=== PATIENT | female | born 1965 | race Two or more races ===

== ENCOUNTER 2016-10-28 10:16 | Emergency (ER) | payer MEDICAID ==
[~2016-10-28] VITALS: Ht 162.6 cm; Wt 78.0 kg
[2016-10-28 11:04] VITALS: BP 141/97
[2016-10-28] MEDS ORDERED: KETOROLAC TROMETH 60MG/2ML VIAL IM ONE (12:15)
== END 2016-10-28 12:26 | disposition home or self-care (01) ==
LOC: ER 10:16
DX: S82.001A Unspecified fracture of right patella, initial encounter for closed fracture (principal); F17.210 Nicotine dependence, cigarettes, uncomplicated; X58.XXXA Exposure to other specified factors, initial encounter; Y93.89 Activity, other specified; Y99.8 Other external cause status; Y92.89 Other specified places as the place of occurrence of the external cause
CPT/HCPCS: 29505; 73700; 96372; 99284; J1885

== ENCOUNTER 2017-10-08 08:07 | Emergency (ER) | payer MEDICAID ==
[~2017-10-08] VITALS: Ht 175.3 cm; Wt 68.0 kg
[2017-10-08] MEDS ORDERED: SODIUM CHLORIDE 0.9% 1,000 ML IV ONE ×2 (08:17)
[2017-10-08] MEDS ORDERED: MORPHINE SULFATE 4 MG/ML SYR/VIAL IV ONE (08:30)
[2017-10-08] MEDS ORDERED: ONDANSETRON HCL 4 MG/2 ML VIAL IV ONE (08:30)
[2017-10-08] MEDS ORDERED: cefTRIAXone 1GM/10ml IVPUSH 10 ML IV ONE (09:45)
[2017-10-08 09:46] LABS: Basophils # (auto) 0 uL; Basophils % (auto) 0.3 % (0.0-2.0); Eosinophils # (auto) 0 uL; Hematocrit 41.7 % (36.0-46.0); Hemoglobin 14.6 g/dL (12.2-16.2); Lymphocytes # (auto) 0.8 uL; Lymphocytes % (auto) 10.4 % (10.0-50.0); Mean Corpuscular Hemoglobin 32.1 pg (28.0-32.0); Mean Corpuscular Volume 91.7 fL (80.0-100.0); Monocytes # (auto) 0.8 uL; Monocytes % (auto) 10.6 % (0.0-12.0); Neutrophils # (auto) 6.1 uL; Neutrophils % (auto) 78.7 % (37.0-80.0); Platelet Count (auto) 241 10^3/uL (140-450); Red Blood Cells 4.54 10^6/uL (4.0-5.20); Red Cell Distribution Width 12.6 % (11.8-14.3); White Blood Cell 7.7 10^3/uL (4.4-10.8)
[2017-10-08 10:01] LABS: INR 0.97 (0.9-1.15); Partial Thromboplastin Time 30.8 sec (22.64-33.71); Prothrombin Time 10.6 sec (9.37-12.3)
[2017-10-08 10:04] LABS: Albumin 3.7 g/dL (3.4-5.0); Anion Gap 10 (5-15); Calcium 9.3 mg/dL (8.5-10.1); Carbon Dioxide 24 mmol/L (21-32); Chloride 101 mmol/L (98-107); Lipase 140 U/L (73-393); Potassium 3.4 mmol/L (3.5-5.1); Sodium 135 mmol/L (136-145)
[2017-10-08 10:06] LABS: Alanine Aminotransferase 52 U/L (13-56); Amylase 46 U/L (25-115); Blood Urea Nitrogen 8 mg/dL (7-18); GFR African American 96 mL/min; GFR Non-African American 80 mL/min; Glucose 128 mg/dL (74-106)
[2017-10-08 10:14] LABS: Alkaline Phosphatase 102 U/L (45-117); Aspartate Aminotransferase 26 U/L (15-37); Total Protein 8.7 g/dL (6.4-8.2)
[2017-10-08] MEDS ORDERED: MORPHINE SULFATE 10 MG/ML INJ 1ML SDV IV ONE (10:15)
[2017-10-08] MEDS ORDERED: POTASSIUM CHL 10% (20 MEQ/15ML) 15ml ORAL SOLN PO ONE (10:45)
[2017-10-08 11:30] LABS: Urine Bacteria MOD /hpf (None Seen); Urine Blood 2+ /uL (Negative); Urine Mucus FEW (None Seen); Urine Specific Gravity 1.006 (1.001-1.035); Urine WBC 95 /hpf (0 - 5)
[2017-10-08 14:14] VITALS: BP 127/86
== END 2017-10-08 14:22 | disposition home or self-care (01) ==
LOC: ER 08:07 → EDBD 08:07 → ER 14:22
DX: N39.0 Urinary tract infection, site not specified (principal); F17.210 Nicotine dependence, cigarettes, uncomplicated; Z83.3 Family history of diabetes mellitus; Z82.49 Family history of ischemic heart disease and other diseases of the circulatory system
CPT/HCPCS: 36415; 74176; 80053; 81001; 82150; 83605; 83690; 84484; 85025; 85610; 85730; 87040; 96361; 96374; 96375; 99285; J2270; J2405; J7030; 93005